=== PATIENT | male | born 1945 | race Hispanic/Latino ===

== ENCOUNTER 2017-11-01 08:50 | Day surgery (SDC) | payer MEDICARE ==
[~2017-11-01 08:50] MED LIST: WATER FOR IRRIG STERILE IR ONE
--- NOTE | 2017-11-01 09:33 | Short Stay Summary ---
Short Stay Documentation Date of service: 11/01/17 Narrative H&P: 72 yr old male with gross hematuria RYLAN EDMONDS MD -- PCP / [facility] 10-25-17 ---GROSS HEMATURIA / MOON PLACED/ COUMADIN FOR AFIB- - HTN - GERD - DEMENITA 10-26-17--[address]---IRRIGATES WILL--BLOODY TO CLEAR CTAP pending & CYSTO---MACROBID, NORCO, FLOMAX 2QD Cysto - History Past Medical History: atrial fib, GERD, hypertension Past Surgical History: No surgical history - Allergies and Medications Current Medications: Allergies Iodinated Contrast- Oral and IV Dye Allergy (Verified 10/30/17 16:35) Anaphylaxis Home Medications Medication Instructions Recorded Confirmed Last Taken Type Fexofenadine HCl [Tatiana Allergy] 180 mg PO DAILY 10/30/17 10/30/17 Unknown History HYDROcodone/APAP 5-325 [[place] 1 each PO Q6HR PRN 10/30/17 10/30/17 Unknown History 5/325] Nitrofurantoin Monohyd/M-Cryst 100 mg PO BID 10/30/17 10/30/17 Unknown History [Macrobid 100 mg Capsule] Omeprazole 20 mg PO DAILY 10/30/17 10/30/17 Unknown History Tamsulosin [Flomax] 0.4 mg PO BID 10/30/17 10/30/17 Unknown History Triamter/Hctz 37.5-25 mg 1 tab PO QDAY 10/30/17 10/30/17 Unknown History [Maxzide-25] Warfarin Sodium [Coumadin] 2.5 mg PO 1XW 10/30/17 10/30/17 Unknown History Warfarin Sodium [Coumadin] 5 mg PO 6XW 10/30/17 10/30/17 Unknown History - Physical exam General appearance: no acute distress, well-nourished Integumentary: no rash HEENT: Atraumatic, PERRLA, EOMI Lungs: Clear to auscultation Heart: Regular rate, No murmurs Male Genitourinary: normal Rectal Exam: deferred Extremities: no ischemia, No edema - Brief post op/procedure progress note Date of procedure: 11/01/17 Pre-op diagnosis: groos hematuria Post-op diagnosis: other (bladder stone) Procedure: cysto, removal bladder stone (5x8mm), rpgs Anesthesia: GETA Surgeon: MEHDI PERKINS Condition: stable - Hospital course Hospital course: gaetanoro & nicki on chart - Disposition Condition at discharge: Stable Disposition: DC-01 TO HOME OR SELFCARE Short Stay Discharge Plan Follow up with: RYLAN EDMONDS MD [Primary Care Provider] - 7 Days
--- NOTE | 2017-11-01 09:54 | Anesthesia Consultation ---
Anesthesia Consult and Med Hx Date of service: 11/01/17 - Airway Anesthetic Teeth Evaluation: Poor (missing top front teeth) ROM Head & Neck: Adequate Mental/Hyoid Distance: Adequate Mallampati Class: Class II Intubation Access Assessment: Probably Good - Pulmonary Exam CTA: Yes - Cardiac Exam Cardiac Exam: RRR - Pre-Operative Health Status ASA Pre-Surgery Classification: ASA3 Proposed Anesthetic Plan: General - Pulmonary Hx Smoking: No Hx Sleep Apnea: No (ELI PRE SCREEN HIGH RISK.) - Cardiovascular System Hx Hypertension: Yes (X 15 YRS) Hx Cardia Arrhythmia: Yes (AFIB) Hx Peripheral Vascular Disease: Yes (LEGS) - Central Nervous System CVA: Yes (NO DEFICIT 4-5 yrs ago) - Endocrine Hx Renal Disease: No Hx Cirrhosis: No Hx Thyroid Disease: No - Other Systems Hx Cancer: No - Additional Comments Anesthesia Medical History Comments: off coumadin x 5 days
[2017-11-01] MEDS ORDERED: SUBLIMAZE IV PRN (09:55)
[2017-11-01] MEDS ORDERED: NORCO 5/325 PO PRN (09:55)
[2017-11-01] MEDS ORDERED: ZOFRAN IV PRN (09:55)
--- NOTE | 2017-11-01 09:55 | Anesthesia Day of Surgery ---
Anesthesia Day of Surgery - Day of Surgery Patient Examined: Yes Patient H&P Reviewed: Yes Patient is NPO: Yes
[2017-11-01] MEDS ORDERED: PEPCID PO NR (10:00)
[2017-11-01] MEDS ORDERED: NACL 0.9% 1000 ML 1,000 ML IV SCH (10:00)
[2017-11-01] MEDS ORDERED: NACL BACTERIOSTATIC INFILTRATI ONE (10:04)
[2017-11-01 11:01] LABS: INR 0.96 (0.87-1.13)
[2017-11-01 11:02] LABS: Partial Thromboplastin Time 29.7 Sec. (24.2-36.6)
[2017-11-01] MEDS ORDERED: DIPRIVAN 10 MG/ML IV ONE (11:25)
[2017-11-01] MEDS ORDERED: ANCEF/STERILE WATER 2 GM/20 ML IV NR (11:30)
[2017-11-01] MEDS ORDERED: ePHEDrine SULFATE ONE (11:46)
[2017-11-01] MEDS ORDERED: DECADRON ONE (11:55)
[2017-11-01] MEDS ORDERED: BENADRYL ONE (11:55)
[2017-11-01] MEDS ORDERED: NEO SYNEPHRINE/NS Syringe(OR USE) IV ONE (11:55)
[2017-11-01] MEDS ORDERED: XYLOCAINE MPF 2% ONE (11:55)
--- NOTE | 2017-11-01 12:35 | Operative Report ---
PREOPERATIVE DIAGNOSIS: Gross hematuria. POSTOPERATIVE DIAGNOSES: Gross hematuria, bladder stone and left renal stone approximately 1 cm. PROCEDURE: Cystoscopy, removal of bladder stone, bilateral retrograde pyelograms. SURGEON: Raffi Dalal MD ANESTHESIA: General. ESTIMATED BLOOD LOSS: Minimal. FLUIDS: Crystalloid. COMPLICATIONS: No complications. INDICATIONS: This patient is a 72-year-old gentleman presented to our office for gross hematuria. He was seen in [facility]. Kelley catheter was placed. He has a history of atrial fibrillation and is on Coumadin, irrigated his catheter, it cleared. CT of abdomen and pelvis pending, but preliminary result left kidney stone. DESCRIPTION OF PROCEDURE: The patient was taken to the operative suite, placed in a supine position. After adequate general anesthesia, placed in a dorsal lithotomy position, prepped and draped in a sterile fashion. Pancystourethroscopy was performed with a 22-Portuguese Storz cystoscope. Urethra was normal at the bladder neck. Prostate was minimally had some mild obstruction. His bladder had an 8 x 5 mm stone. This was engaged with a grasper and pulled out intact without difficulty. The patient had diffuse trabeculation. No other stones or tumors. Both ureteral orifices in normal position. Bilateral retrograde pyelograms were obtained with an 8-Portuguese Martin catheter and 8 mL of contrast. No filling defects or obstruction on the right. The left side obvious stone in the renal pelvis, 1 cm. He is on Coumadin at this time and therefore we cannot proceed with lithotripsy. Due to persistent gross hematuria he wanted to move up his surgery, he and the family and therefore we did not have time to stop his blood thinner. Rectal exam was benign. He was extubated and taken to recovery room. He will go home on Macrobid, [place] and Flomax 2 tablets. JOB# [id number] BERKLEY/NTS
--- NOTE | 2017-11-01 13:35 | Post Anesthesia Evaluation ---
- Post Anesthesia Evaluation Patient Participated: Yes Airway Patent: Yes Stable Respiratory Function: Yes Nausea/Vomiting: No Temp > 96.8F: Yes Pain Manageable: Yes Adequeate Hydration: Yes Anesthesia Complications: No Block Receding Appropriately: Not Applicable Patient on Ventilator: No
[2017-11-01 16:59] VITALS: BP 117/73
--- NOTE | 2017-11-02 08:43 | Fluoroscopy Report ---
FLUOROSCOPY RETROGRADE UROGRAPHY History: Gross hematuria. Findings: No comparison. Fluoroscopy was provided by radiology during retrograde urography by the urologist. 9 fluoroscopic images were captured. Retrograde pyelogram's are within normal limits. Per the operative notes, a bladder stone was removed and a left renal stone was seen but not removed. The patient was to be set up for lithotripsy. Please correlate with the procedural report as needed. Impression: Left renal stone. Bladder stone removal. Please see above.
== END 2017-11-01 13:55 | disposition home or self-care (01) ==
LOC: OR 08:50
PROVIDERS: ATTEND Urology
DX: N21.0 Calculus in bladder (principal); N32.89 Other specified disorders of bladder; N40.0 Benign prostatic hyperplasia without lower urinary tract symptoms; K21.9 Gastro-esophageal reflux disease without esophagitis; I10 Essential (primary) hypertension; I48.91 Unspecified atrial fibrillation; Z91.041 Radiographic dye allergy status
CPT/HCPCS: 36415; 52315; 74420; 84132; 85610; 85730; 93005; 93010; A4217; C1758; J0690; J1100; J1200; J2370; J2704; J7030; Q9967

== ENCOUNTER 2017-11-15 11:45 | Day surgery (SDC) | payer MEDICARE ==
[~2017-11-15 11:45] MED LIST changes: +ANCEF/STERILE WATER 2 GM/20 ML IV NR; -WATER FOR IRRIG STERILE IR ONE
[2017-11-15 13:36] LABS: INR 0.89 (0.87-1.13); Partial Thromboplastin Time 26.9 Sec. (24.2-36.6)
[2017-11-15] MEDS ORDERED: DILAUDID IV PRN (13:37)
[2017-11-15] MEDS ORDERED: ZOFRAN IV PRN (13:37)
--- NOTE | 2017-11-15 13:37 | Anesthesia Consultation ---
Anesthesia Consult and Med Hx - Airway Anesthetic Teeth Evaluation: Poor ROM Head & Neck: Adequate Mental/Hyoid Distance: Adequate Mallampati Class: Class II Intubation Access Assessment: Good - Pulmonary Exam CTA: Yes - Cardiac Exam Cardiac Exam: RRR - Pre-Operative Health Status ASA Pre-Surgery Classification: ASA3 Proposed Anesthetic Plan: General - Pulmonary Hx Smoking: No Hx Sleep Apnea: No (ELI PRE SCREEN HIGH RISK.) - Cardiovascular System Hx Hypertension: Yes (X 15 YRS) Hx Cardia Arrhythmia: Yes (AFIB) Hx Peripheral Vascular Disease: Yes (LEGS) - Central Nervous System CVA: Yes (NO DEFICIT 4-5 yrs ago) - Endocrine Hx Renal Disease: No Hx Cirrhosis: No Hx Thyroid Disease: No - Other Systems Hx Cancer: No
--- NOTE | 2017-11-15 13:37 | Anesthesia Day of Surgery ---
Anesthesia Day of Surgery - Day of Surgery Patient Examined: Yes Patient H&P Reviewed: Yes Patient is NPO: Yes
[2017-11-15 13:43] LABS: Blood Urea Nitrogen 13 mg/dL (9-20)
[2017-11-15] MEDS ORDERED: LACTATED RINGERS 1,000 ML IV SCH (14:00)
[2017-11-15] MEDS ORDERED: SUBLIMAZE ONE (14:34)
[2017-11-15] MEDS ORDERED: XYLOCAINE MPF 2% ONE (14:34)
[2017-11-15] MEDS ORDERED: DECADRON ONE (14:34)
[2017-11-15] MEDS ORDERED: ZOFRAN ONE (14:34)
[2017-11-15] MEDS ORDERED: DIPRIVAN 10 MG/ML IV ONE (14:35)
[2017-11-15] MEDS ORDERED: ePHEDrine SULFATE ONE (14:57)
[2017-11-15] MEDS ORDERED: ADRENALIN ONE (14:57)
--- NOTE | 2017-11-15 16:10 | Short Stay Summary ---
Short Stay Documentation Date of service: 11/15/17 - History H&P: obtained from office - Allergies and Medications Current Medications: Allergies Iodinated Contrast- Oral and IV Dye Allergy (Verified 10/30/17 16:35) Anaphylaxis Home Medications Medication Instructions Recorded Confirmed Last Taken Type Fexofenadine HCl [Tatiana Allergy] 180 mg PO DAILY 10/30/17 11/12/17 11/15/17 09 :00 History HYDROcodone/APAP 5-325 [[place] 1 each PO Q6HR PRN 10/30/17 11/12/17 11/14/17 History 5/325] Nitrofurantoin Monohyd/M-Cryst 100 mg PO BID 10/30/17 11/12/17 11/15/17 09:00 History [Macrobid 100 mg Capsule] Omeprazole 20 mg PO DAILY 10/30/17 11/12/17 11/14/17 History Tamsulosin [Flomax] 0.4 mg PO DAILY 10/30/17 11/12/17 11/14/17 History Triamter/Hctz 37.5-25 mg 1 tab PO QDAY 10/30/17 11/12/17 11/15/17 09:00 History [Maxzide-25] Warfarin Sodium [Coumadin] 2.5 mg PO 1XW 10/30/17 11/12/17 2 Weeks Ago History ~11/01/17 Warfarin Sodium [Coumadin] 5 mg PO 6XW 10/30/17 11/12/17 2 Weeks Ago History ~11/01/17 Active Medications Cefazolin Sodium (Ancef/Sterile Water 2 Gm/20 Ml) 2 gm IV PREOP NR Stop: 11/15/17 23:00 Hydromorphone HCl (Dilaudid) 0.5 mg IV Q10MIN PRN PRN Reason: Pain , Severe (7-10) Stop: 11/15/17 23:59 Lactated Ringer's (Lactated Ringers) 1,000 mls @ 42 mls/hr IV DIRECT KEYSHA Last Admin: 11/15/17 13:57 Dose: 42 mls/hr Ondansetron HCl (Zofran) 4 mg IV ONCE PRN PRN Reason: Nausea And Vomiting - Brief post op/procedure progress note Date of procedure: 11/15/17 Post-op diagnosis: same Procedure: left renal eswl Anesthesia: GETA Findings: large bowel gas obscuring stone, makng vis di; lg stone Surgeon: YAW MCCOY Estimated blood loss: minimal Pathology: none Specimen disposition: to lab Condition: stable - Hospital course Hospital course: or pacu home - Disposition Condition at discharge: Good Disposition: DC-01 TO HOME OR SELFCARE Short Stay Discharge Plan Activity: advance as tolerated Diet: advance as tolerated Follow up with: YAW MCCYO MD [Staff Physician] - 7 Days
[2017-11-15 17:39] VITALS: BP 112/69
--- NOTE | 2017-11-15 18:06 | Post Anesthesia Evaluation ---
- Post Anesthesia Evaluation Patient Participated: Yes Airway Patent: Yes Stable Respiratory Function: Yes Nausea/Vomiting: No Temp > 96.8F: Yes Pain Manageable: Yes Adequeate Hydration: Yes Anesthesia Complications: No Block Receding Appropriately: Not Applicable
--- NOTE | 2017-12-16 15:23 | Operative Report ---
PREOPERATIVE DIAGNOSIS: Left renal stone with a history of bilateral stones. ANESTHESIA: General. FINDINGS: Large bowel gas obscuring the stone, making visualization difficult, but appeared to be a large stone, some visualization, difficult to assess large bowel or stone size because of this, but could see a density consistent with stone. Reviewed patient's H and P evaluation by Dr. Dalal and he had been scheduled for this procedure on the left side. SURGEON: Sebas Goetz M.D. ESTIMATED BLOOD LOSS: Minimal. PATHOLOGY: None. SPECIMENS: None. CONDITION: Stable. CLINICAL INDICATIONS: The patient was counseled on RCBA, antibiotics, and SCDs. DESCRIPTION OF PROCEDURE: The patient was transferred to OR suite, placed in supine position, anesthesia, prepped and draped in standard fashion. Biplanar fluoroscopy was used to target the stone with an F2. There was noted to be what appeared to be a larger stone than suspected, but there was significant large bowel gas and stool obscuring this area, but we could see a density throughout this in the renal shadow consistent with a stone as per recommendation on report and has been scheduled for treatment on the left side. At this point, a total of 2500 shocks were delivered. Intermittent repositioning done as necessary, it was done at 4 kilovolts with maximum of 5.0 kilovolts raised during the procedure. At the end of the procedure, there was mild decrease in density. The patient was awakened and transferred to PACU in good and stable condition. PLAN: Stage for future treatment of stones. The patient with known bilateral stones with both sides likely needing potentially multiple treatments. JOB# [id number] ATS/NTS
== END 2017-11-15 11:46 | disposition home or self-care (01) ==
LOC: OR 11:45
PROVIDERS: ATTEND Urology
DX: N20.0 Calculus of kidney (principal); N40.0 Benign prostatic hyperplasia without lower urinary tract symptoms; I10 Essential (primary) hypertension; K21.9 Gastro-esophageal reflux disease without esophagitis; I48.91 Unspecified atrial fibrillation; I73.9 Peripheral vascular disease, unspecified; Z91.048 Other nonmedicinal substance allergy status; Z86.73 Personal history of transient ischemic attack (TIA), and cerebral infarction without residual deficits
CPT/HCPCS: 36415; 50590; 82565; 84132; 84520; 85610; 85730; J0690; J1100; J2405; J2704; J3010; J7120; J0171